=== PATIENT | male | born 1945 | race Caucasian/White ===

== ENCOUNTER 2021-08-23 10:21 | Outpatient (CLI) | payer OTHER | END 2021-08-23 23:59 | disposition home or self-care (01) | LOC: CVU 10:21 | PROVIDERS: ATTEND Internal Medicine Cardiovascular Disease | DX: I08.2 Rheumatic disorders of both aortic and tricuspid valves (principal); I42.9 Cardiomyopathy, unspecified | CPT/HCPCS: C8929; Q9957 ==